=== PATIENT | female | born 1945 | race Caucasian/White ===

== ENCOUNTER 2022-07-16 12:51 | Outpatient (CLI) | payer MEDICARE, BC | END 2022-07-16 12:52 | disposition home or self-care (01) | LOC: CSHRAD 12:51 | PROVIDERS: ATTEND Chiropractor | DX: M25.552 Pain in left hip (principal); M54.50 Low back pain, unspecified; M16.12 Unilateral primary osteoarthritis, left hip; M76.892 Other specified enthesopathies of left lower limb, excluding foot; M47.816 Spondylosis without myelopathy or radiculopathy, lumbar region; Q76.49 Other congenital malformations of spine, not associated with scoliosis | CPT/HCPCS: 72100 ==